=== PATIENT | male | born 1965 | race Hispanic/Latino ===

== ENCOUNTER 2024-01-27 03:56 | Emergency (ER) | payer BC, OTHER ==
[~2024-01-27] VITALS: Ht 177.8 cm; Wt 69.9 kg
[2024-01-27] MEDS: 0.9%NACL 1000ML 1,000 ML IV ONE (04:30)
[2024-01-27] MEDS: ketOROlac 30MG VIAL (30MG/ML) IVP ONE (04:30)
[2024-01-27] MEDS: tamSULOsin HCL 0.4 MG CAP.ER.24H PO ONE (04:30)
[2024-01-27 04:54] LABS: BASOPHILS # (AUTO) 0.05 K/uL (0.00-0.20); BASOPHILS % (AUTO) 0.6 % (0.0-5.0); EOSINOPHILS # (AUTO) 0.33 K/uL (0.00-0.70); EOSINOPHILS % (AUTO) 4.1 % (0.0-8.0); IMMATURE GRANULOCYTE ABSOLUTE 0.02 K/uL (0-1); LYMPHOCYTES # (AUTO) 3.4 K/uL (1.0-4.8); LYMPHOCYTES % (AUTO) 42.9 % (21.0-51.0); MEAN CORPUSCULAR HEMOGLOBIN 29.4 pg (27.0-33.0); MEAN CORPUSCULAR HGB CONC 32.8 g/dL (32.0-36.0); MEAN CORPUSCULAR VOLUME 89.8 fL (79-99); MONOCYTES # (AUTO) 0.7 K/uL (0.1-1.0); MONOCYTES % (AUTO) 8.8 % (3.0-13.0); NEUTROPHILS # (AUTO) 3.5 K/uL (1.8-7.7); NEUTROPHILS % (AUTO) 43.3 % (40.0-77.0); PLATELET COUNT (AUTO) 265 K/uL (130-400); RED BLOOD CELL COUNT(AUTO) 4.79 MIL/uL (4.50-6.20); RED CELL DISTRIBUTION WIDTH 13.2 % (11.0-15.5)
[2024-01-27 05:02] LABS: CREATININE 1.2 mg/dL (0.5-1.3); POTASSIUM 3.1 mmol/L (3.5-5.1)
[2024-01-27] MEDS: PoTASSium BIcarbonate/CIT AC 25 MEQ TABLET.EFF PO ONE (06:01)
[2024-01-27 07:09] LABS: APPEARANCE,URINE CLEAR (CLEAR); BILIRUBIN,URINE NEGATIVE (NEGATIVE); COLOR,URINE COLORLESS (YELLOW); GLUCOSE, URINE (UA) NEGATIVE (NEGATIVE); KETONES,URINE NEGATIVE (NEGATIVE); LEUKOCYTE ESTERASE ,URINE NEGATIVE Leu/uL (NEGATIVE); NITRATE,URINE NEGATIVE (NEGATIVE); OCCULT BLOOD,URINE NEGATIVE (NEGATIVE); PROTEIN,URINE NEGATIVE (NEGATIVE); UROBILINOGEN,URINE 0.2 mg/dL (0.2-1.0)
[2024-01-27] MEDS ORDERED: TAMS-1 PO (07:41)
[2024-01-27 07:43] VITALS: BP 90/44; PULSE 78; RESP 18; TEMP 98.3; O2SAT 99
[2024-01-27 07:55] LABS: WBC,URINE 0-1 /HPF (0-1)
== END 2024-01-27 07:52 | disposition home or self-care (01) ==
LOC: EDH 03:56
DX: N20.0 Calculus of kidney (principal); Z91.040 Latex allergy status; Z79.899 Other long term (current) drug therapy; Z87.442 Personal history of urinary calculi; Z98.890 Other specified postprocedural states
CPT/HCPCS: 99285; 74176; 96374; 96361; 80048; 85025; 81001; 36415; J7030; J1885